=== PATIENT | female | born 1970 | race Caucasian/White ===

== ENCOUNTER 2019-05-11 06:59 | Day surgery (SDC) | payer BC, SELFPAY ==
[2019-05-11 07:17] VITALS: BP 109/68; PULSE 71; RESP 18; TEMP 36.1; O2SAT 100
[2019-05-11] MEDS: Lactated Ringers 1,000 ML 80 ML IV (07:33)
--- NOTE | 2019-05-11 08:08 | W.PM.DSUDISC ---
Discharge Plan Disposition Patient Disposition: HOME Condition: Good Discharge Details Reason For Visit: Colonoscopy Attending Provider: Nicolasa Banerjee Primary Care Provider: Nohelia Lee Home Meds and New Rx's Prescriptions: Continued levothyroxine 75 mcg capsule 75 mcg PO DAILY RF: 0 multivitamin 1 EACH tablet 1 ea PO DAILY RF: 0 Discontinued polyethylene glycol 3350 17 gram/dose powder 238 g PO ONCE Qty: 238 RF: 0 bisacodyl [Dulcolax (bisacodyl)] 5 mg tablet,delayed release (DR/EC) 5 mg PO ONCE Qty: 4 RF: 0 Discharge Instructions Additional Instructions: Findings: Your colonoscopy was normal. Follow up: Plan for screening colonoscopy in 10 years or sooner if symptoms arise. Please call if you develop: fevers >101.5 Nausea or Vomiting Abdominal pain that is not transient DAY SURGERY UNIT POST COLONOSCOPY INSTRUCTIONS 1. Because there will be medication in your system for the next 24 hours, you may feel a little sleepy. Your coordination will be affected. Therefore: a. Do not drive or operate dangerous equipment for 24 hours. b. Do not drink alcohol beverages for 24 hours (not even beer). c. Plan to go home and rest for the day. 2. Generally there are no restrictions on your activity after a day or so has gone by, but you may feel a bit fatigued for a few days. 3 After you arrive home you may have a light meal and return to a normal diet as you can tolerate it without feeling sick to your stomach. 4. After surgery, you may feel pain or discomfort. This should be only transient, but if it persists please contact your doctor. 5. If there are any questions regarding the findings of your procedure, please feel free to contact your doctor. 6. If you are unable to contact your doctor with a problem, contact the hospital at [phone]. 7. Continue all your regular medications unless directed otherwise. I understand the above instructions and have no questions. Signature of Patient or Responsible Adult Escort Date/Time Name of Responsible Adult Escort Signature of Nurse Date/Time Activity:: Activity as Tolerated Diet:: As Tolerated Discharge Orders Discharge Orders: Discharge Order (Routine); Ordered 05/11/19 Ordered By: Nicolasa Banerjee
[2019-05-11 09:15] VITALS: BP 96/62; PULSE 59; RESP 18; TEMP 36.3; O2SAT 100
--- NOTE | 2019-05-11 10:30 | COLE_ITS ---
REPORT OF OPERATIVE PROCEDURE DATE OF PROCEDURE May 11, 2019 PREOPERATIVE DIAGNOSIS Screening. POSTOPERATIVE DIAGNOSIS Normal colon. PROCEDURE Colonoscopy. SURGEON Nicolasa Banerjee M.D. ANESTHESIA General. INDICATIONS This is a 49-year-old woman who presents for her first screening colonoscopy. She is asymptomatic and has no family history of colon cancer. PROCEDURE DESCRIPTION She was placed in the left Jauregui position. Propofol was titrated to sedation. Digital rectal examinati on revealed no abnormities. The scope was advanced to the cecum without difficulty. The ileocecal tam ve and the appendiceal orifice were clearly identified. Her prep was excellent. The scope was slowly withdrawn with no abnormalities seen within the ascending, transverse, descending, sigmoid colon or r ectum with the exception of some prominent internal hemorrhoids seen on retroflexed view. She tolerat ed the procedure well and was stable to Recovery. She will need a followup screening again in 10 years. CC: HENRI Paredes
== END 2019-05-11 09:25 | disposition home or self-care (01) ==
PROVIDERS: PCP Nurse Practitioner; Visit Provider Surgery
PROC: 0DJD8ZZ Inspection of Lower Intestinal Tract, Via Natural or Artificial Opening Endoscopic (ICD-10-PCS; CPT 45378; principal; 2019-05-11 08:30)
DX: Z12.11 Encounter for screening for malignant neoplasm of colon (principal); K64.8 Other hemorrhoids
CPT/HCPCS: 45378

== ENCOUNTER 2020-03-15 00:34 | Outpatient (CLI) | payer BC, SELFPAY ==
--- NOTE | 2020-03-15 | DI.MAMMO_ITS ---
EXAM: MG MAMMO SCREENING CLINICAL HISTORY: SCREENING, Z12.31 TECHNIQUE: Bilateral full field digital CC and MLO mammographic images were obtained with 3D tomosyn thesis and utilizing computer aided detection (CAD). COMPARISON: Available for comparison. FINDINGS: Masses/Architectural Distortion: None seen. Microcalcifications: No suspicious pleomorphic-type are seen. Skin Thickening/Nipple Retraction: None. IMPRESSION: 1. No significant interval change with no specific features of malignancy noted. 2. Unless there is more urgent need, screening mammography is recommended, as per [employer] guidelines. BI-RADS Category 1 - Negative Breast Density - Category C - Heterogeneously dense The mammogram demonstrates the patient's breast tissue is dense. Dense breast tissue is very common a nd is not abnormal but dense breast tissue can make it harder to find cancer on a mammogram. Also, de nse breast tissue may increase their breast cancer risk. This information about the result of the [facility] mogram report was provided to the patient to raise their awareness. Use this report when you speak wi th the patient about their risks for breast cancer, which includes their family history. At that time , you may recommend for more screening tests (Ultrasound or MRI) as they might be useful based on the ir risk. A negative radiographic report should not delay biopsy if a dominant or clinically suspicious mass is present. Up to ten percent of cancers are not identified on mammography. A negative report may reinforce clinical impression. Adenosis and dense breasts may obscure an underlying neoplasm. False positive reports average 6 to 10%. Patient will receive a letter notifying them of these results.
== END 2020-03-15 00:54 ==
PROVIDERS: PCP Nurse Practitioner; Visit Provider Nurse Practitioner
DX: Z12.31 Encounter for screening mammogram for malignant neoplasm of breast (principal); R92.2 Inconclusive mammogram
CPT/HCPCS: 77063; 77067

== ENCOUNTER 2020-04-30 23:23 | Emergency (ER) | payer BC, SELFPAY ==
--- NOTE | 2020-04-30 23:25 | ED.GENADUL_ITS ---
Discharge Plan Disposition Patient Disposition: HOME Condition: Stable Discharge Details Chief Complaint: Headache Clinical Impression: Migraine Primary Care Provider: Nohelia Lee ED Provider: Paloma Bhatt Home Meds and New Rx's Prescriptions: Continued levothyroxine 75 mcg capsule 75 mcg PO DAILY RF: 0 multivitamin 1 EACH tablet 1 ea PO DAILY RF: 0 Discharge Instructions Instructions: Migraine Headache (ED) Additional Instructions: Drink plenty of fluids and get plenty of rest. Take 600 mg of ibuprofen every 6 hours and/or 500 mg of Tylenol every 4 hours as needed for pain. Take Zofran as needed and directed for nausea and vomiting. Follow-up with your primary care doctor in 1 week. Return to the emergency department with any worsening or new concerning symptoms. Discharge Data Discharge Physician: Paloma Bhatt Medical Decision Making 2340 -- 50-year-old female with a history of hypothyroidism and migraines presents with migraine headache for the past 2 hours. Vitals within normal limits. Patient appears uncomfortable covering her eyes due to photophobia. She appears nontoxic. No nuchal rigidity. No focal deficits. As this is consistent with her usual migraines, do not see an indication for any labs and imaging at this time. Will place an IV, bolus IV fluids, Compazine, Benadryl, Decadron and reassess. 0100 --patient reassessed and she feels much better and is requesting to go home. Patient was able to ambulate and denies any acute complaints at this time. Advised to follow up with the primary care doctor for re-evaluation. Usual and customary return precautions given prior to discharge. Medical Records Medical records reviewed: Yes I reviewed the patient's medical records. HPI General Mode of arrival: ambulatory . Date/Time Provider Initiated Documentation: 04/30/20 23:25 . Limitations to Documentation: no limitations . Information obtained by: patient . HPI Narrative: Patient is a 50-year-old female with a history of migraines and hypothyroidism who presents to the ED for complaint of headache for the past 2 hours. Patient states she was watching a movie on a laptop at home when she felt a sudden onset of diffuse throbbing headache. She states she attempted to lay down and the headache became worse and is now mainly on the left side of her head and behind her left eye. She t ook 6 tabs of 600 mg ibuprofen over this period of time with some relief stating that it improved her headache from 10/10 down to 4/10. She also took Tums due to nausea. She states she usually has migraines occurring only every few years and states her last migraine was 4 years ago and states this feels similar to that. She also admits to sensitivity to light and noise. She denies any fever, vomiting, acute neck pain, chest pain, abdominal pain, dizziness, blurry vision, speech changes or extremity weakness or numbness. She states she traveled to [facility] within the past 2 weeks which is in a green zone for coronavirus. She denies any other known sick contacts, new medications, new foods or other recent illness. Related Data Home Medications Medication Instructions Recorded Confirmed multivitamin 1 ea PO DAILY NS 01/14/13 04/30/20 levothyroxine 75 mcg capsule 75 mcg PO DAILY 03/22/19 04/30/20 Allergies Allergy/AdvReac Type Severity Reaction Status Date / Time Penicillins Allergy Intermediate hives Unverified 04/30/20 23:29 Sulfa (Sulfonamide Allergy Intermediate Hives Unverified 04/30/20 23:29 Antibiotics) Review of Systems All systems reviewed & are unremarkable except as noted in HPI and below Constitutional Constitutional: Reports as per HPI, Denies chills, Denies fever(s) and Reports headache(s) Eyes Eyes: Denies blurry vision and Reports photophobia ENT Ears, Nose, Mouth, and Throat: Denies dizziness, Reports headache(s), Denies sore throat and Denies throat swelling Cardiovascular Cardiovascular: Denies chest pain and Denies dyspnea Respiratory Respiratory: Denies cough and Denies dyspnea Gastrointestinal Gastrointestinal: Denies abdominal pain, Denies diarrhea, Reports nausea and Denies vomiting Genitourinary Genitourinary: Denies hematuria and Denies dysuria Musculoskeletal Musculoskeletal: Denies back pain and Denies numbness Integumentary/Breasts Skin/Breast: Denies lesions and Denies rash Neurologic Neurologic: Denies dizziness, Reports headache(s), Denies localized weakness and Denies numbness Allergic/Immunologic Allergic/Immunologic: Denies throat swelling [facility] Medical History (Updated 05/01/20 @ 00:54 by Paloma Bhatt DO) Hypothyroid (Chronic) Migraine (Chronic) Surgical History (Updated 05/25/19 @ 11:38 by Julieth Marquis RN) H/O hernia repair (Chronic ~12/2012) Hx of colonoscopy (Chronic) 05/11/19 Dr Nicolasa Banerjee, [facility], normal, repeat 10 years. Family History (Updated 03/22/19 @ 08:33 by Deepika Dunn RN) Mother Hypertension Rheumatoid arthritis Father Pancreatic cancer Maternal Grandmother Breast cancer Son Diabetes Social History (Updated 04/29/19 @ 10:54 by FRANK Jacobo) Smoking/Tobacco Use Status: Never Alcohol Intake: current Alcohol Intake frequency: 0-2 drinks per day Alcohol type: wine Drug use: Never Substance use type: does not use Do you feel safe at home: Yes Do you feel safe in your relationship?: Yes Exam Const General: cooperative, healthy appearing and uncomfortable Orientation: alert, awake and oriented x3 HENMT Head: normal to inspection Face and sinus: normal facial exam Eyes General: appearance normal, both eyes and all related structures Pupils: PERRL EOM: EOM intact bilaterally Direct ophthalmoscopy: photophobia Neck Neck: normal visual inspection and No submandibular swelling Lymphatic: no lymphadenopathy noted Chest Chest: normal inspection of the chest and no tenderness Resp Effort & Inspection: normal respiratory effort and able to speak in complete sentences Auscultation: clear to auscultation bilaterally Cardio Rate: regular rate Rhythm: regular rhythm GI Inspection: normal to inspection Palpation: soft, not firm, not rigid and nontender Auscultation: normal bowel sounds Back/Spine/Pelvis Thoracic/Lumbar Spine: thoracic and lumbar spine normal to inspection Pelvis: no pain with anterior-posterior compression Skin General skin exam: no rashes or lesions noted Neuro General: patient alert, patient awake, patient oriented x3, moves all extremities, no meningeal signs, no focal motor deficits and CN's II-XI intact bilaterally Cognition: normal cognition Speech: speech normal Motor: muscle tone normal throughout and strength 5/5 throughout Sensory Exam: no sensory deficits noted Extrem General: normal to inspection, full ROM, capillary refill normal, no calf tenderness bilaterally and no edema Psych Appearance: grossly normal Mental Status: mental status grossly normal Speech and Movement: speech and movement normal Affect: normal affect
[2020-04-30 23:29] VITALS: BP 124/85; PULSE 68; RESP 16; TEMP 36.8; O2SAT 100
[2020-04-30] MEDS: Normal Saline 1,000 ML 1000 ML IV (23:45)
[2020-05-01] MEDS: Dexamethasone 10 MG/ML VIAL IVP (00:08)
[2020-05-01] MEDS: diphenhydrAMINE 50 MG/ML VIAL 25 MG IVP (00:10)
[2020-05-01] MEDS: Prochlorperazine 10 MG/2 ML VIAL IVP (00:15)
[2020-05-01 00:34] VITALS: BP 99/70; PULSE 75; RESP 18; O2SAT 100
[2020-05-01] MEDS: Ondansetron O.D.T. 4 MG TABEF, 3 TABS/BTL PO (01:03)
== END 2020-05-01 01:05 | disposition home or self-care (01) ==
PROVIDERS: Emergency Provider Physician Assistant; PCP Nurse Practitioner
DX: G43.909 Migraine, unspecified, not intractable, without status migrainosus (principal)
CPT/HCPCS: 96361; 96374; 96375; 99284; J0780; J1100; J1200

== ENCOUNTER → 2022-01-07 01:27 | Outpatient (CLI) | payer BC, SELFPAY ==
--- NOTE | 2022-01-07 | DI.MAMMO_ITS ---
Exam(s) MAMMO SCREENING EXAM: MAMMO SCREENING CLINICAL HISTORY: SCREENING, Z12.31. TECHNIQUE: Bilateral full field digital CC and MLO mammographic images were obtained with 3D tomosyn thesis and utilizing computer aided detection (CAD). COMPARISON: Prior mammograms were reviewed, the most recent being February 2020. FINDINGS: Fibroglandular tissue is again noted be moderately dense, this somewhat decreasing the sensitivity of the mammogram for finding hidden underlying lesions. There are no new significant radiograph findings in the right breast. In the left breast there are 2 microcalcification groups, 1 of these located 2 cm medial to the nippl e and the other located 8 cm medial to the nipple, both on the CC view. The more central group appea rs unchanged. The more peripheral group appears slightly more prominent. There are no obvious spiculated masses. There is no significant architectural distortion nor skin thickening-retraction. IMPRESSION: Dense bilateral fibroglandular tissue. No radiographic evidence of malignancy in the right breast. Left breast microcalcification groups. Recommend spot Mag 2D views of both groups in CC plane plus s traight lateral view. BI-RADS Category 0 - Assessment Incomplete: Need additional imaging evaluation Breast Density - Category C - Heterogeneously dense Breast density Category C or D implies that the patient has dense breast tissue. Dense breast tissue can make it harder to find cancer on a mammogram. Dense breast tissue is also associated with an incr eased risk of breast cancer. This information about the result of the mammogram report was provided to the patient to raise their awareness. Use this report when you speak with the patient about their risks for breast cancer, which includes their family history. At that time, you may recommend additional screening tests (Ultrasoun d or MRI) as these tests may add significant information. A negative radiographic report should not delay biopsy if a dominant or clinically suspicious mass is present. Up to ten percent of cancers are not identified on mammography. A negative report may reinforce clinical impression. Adenosis and dense breasts may obscure an underlying neoplasm. False positive reports average 6 to 10%. Patient will receive a letter notifying them of these results.
== END ==
PROVIDERS: PCP Nurse Practitioner; Visit Provider Nurse Practitioner
DX: Z12.31 Encounter for screening mammogram for malignant neoplasm of breast (principal); R92.8 Other abnormal and inconclusive findings on diagnostic imaging of breast
CPT/HCPCS: 77063; 77067

== ENCOUNTER → 2022-01-15 03:59 | Outpatient (CLI) | payer BC, SELFPAY ==
--- NOTE | 2022-01-15 14:28 | DI.MAMMO_ITS ---
Exam(s) MG MAMMO SCREEN CALL BACK UNI US BREAST LT LIMITED EXAM: MG MAMMO SCREEN CALL BACK UNI and U/S breast LT limited CLINICAL HISTORY: F/U ABNL MAMMO, LT BREAST 2 MICROCALCIFICATION GROUPS MEDIAL TO NIPPLE. TECHNIQUE: Craniocaudal and mediolateral oblique Full Field Digital Mammography views of the left br east with Computer Aided Diagnosis followed by Tomosynthesis and left breast ultrasound. COMPARISON: Comparison is made with prior examinations. FINDINGS: Mammography/Tomosynthesis: Masses/Architectural Distortion: None seen. Microcalcifictions: No suspicious pleomorphic-type are seen. The 2 groupings of calcifications have b een present on prior examinations. The calcifications in the retroareolar region appear to be so sea ivan with the round partially obscured mass. Skin Thickening/Nipple Retraction: None. Limited left breast US: Echotexture: Normal appearance of the glandular tissue. Shadowing: No suspicious foci. Cyst: There is a 0.5 cm cyst at the 9 o'clock position of the left breast 4 cm from the nipple. Solid lesions: At the 7 o'clock position of the left breast 1 cm from the nipple, there is a 0.3 x 0. 5 cm nodule present. This may correspond to the mammographic abnormality. Ductal dilation: None. IMPRESSION: 1. No evidence for malignancy is identified at this time. 2. A six-month follow-up left mammogram and ultrasound are requested for re-evaluation. 3. The findings were discussed with the patient on the date of the examination. BI-RADS Category 3 - 6 month - Probably Benign Finding: Recommend follow-up imaging in 6 months Breast Density - Category C - Heterogeneously dense Breast density Category C or D implies that the patient has dense breast tissue. Dense breast tissue can make it harder to find cancer on a mammogram. Dense breast tissue is also associated with an incr eased risk of breast cancer. This information about the result of the mammogram report was provided to the patient to raise their awareness. Use this report when you speak with the patient about their risks for breast cancer, which includes their family history. At that time, you may recommend additional screening tests (Ultrasoun d or MRI) as these tests may add significant information. A negative radiographic report should not delay biopsy if a dominant or clinically suspicious mass is present. Up to ten percent of cancers are not identified on mammography. A negative report may reinforce clinical impression. Adenosis and dense breasts may obscure an underlying neoplasm. False positive reports average 6 to 10%. Patient will receive a letter notifying them of these results.
== END ==
PROVIDERS: PCP Nurse Practitioner; Visit Provider Nurse Practitioner
DX: Z12.31 Encounter for screening mammogram for malignant neoplasm of breast (principal); R92.8 Other abnormal and inconclusive findings on diagnostic imaging of breast; N60.02 Solitary cyst of left breast; N63.24 Unspecified lump in the left breast, lower inner quadrant
CPT/HCPCS: 76642; 77063; 77067

== ENCOUNTER → 2022-07-18 00:03 | Outpatient (CLI) | payer OTHER, SELFPAY ==
--- NOTE | 2022-07-18 | DI.US_ITS ---
Exam(s) MG MAMMO DIAGNOSTIC UNI US BREAST LT LIMITED EXAM: US BREAST LT LIMITED CLINICAL HISTORY: LT BREAST MASS, N63.20, MICROCALCIFICATION F/U, 6 MO F/U TECHNIQUE: Ultrasound performed using standard protocol. COMPARISON: No exams were available for comparison FINDINGS: Left breast mammogram with magnification views of the left breast and left breast ultrasound are inte rpreted in conjunction. Patient had a group of microcalcifications identified in the medial retroare olar portion of the left breast on prior examinations of December 2021, these are again seen on today's ex amination and appear to have increased somewhat in number since the prior examination, numbering in e xcess of 30 microcalcifications period many of these are punctate but there is some question of a few branching and curvilinear forms period no other suspicious findings in the left breast. Breast ultr asound shows no mass or cyst in the medial retroareolar portion of the breast. Because of the interval increase in number of microcalcifications and the possibility of pleomorphism , biopsy is recommended. I have discussed these findings with the patient. IMPRESSION: Biopsy recommended for group of microcalcifications of the left breast in medial retroareolar portion of the left breast about 3 cm from the nipple. BI-RADS Cat 4 - Suspicious Abnormality: Biopsy should be considered Breast Density - Category C - Heterogeneously dense DATA REPOSITORY:
== END ==
PROVIDERS: PCP Nurse Practitioner; Visit Provider Nurse Practitioner
DX: R92.8 Other abnormal and inconclusive findings on diagnostic imaging of breast (principal); R92.0 Mammographic microcalcification found on diagnostic imaging of breast
CPT/HCPCS: 76642; 77061; 77065; G0279

== ENCOUNTER 2023-03-06 00:58 | Outpatient (CLI) | payer OTHER, SELFPAY ==
--- NOTE | 2023-03-06 | DI.US_ITS ---
Exam(s) US BREAST LT COMPLETE MG MAMMO DIAGNOSTIC BI EXAM: MG MAMMO DIAGNOSTIC BI AND COMPLETE LEFT BREAST ULTRASOUND CLINICAL HISTORY: DIAGNOSTIC, 6 MO F/U, F/U LT BREAST LESION, R92.0. TECHNIQUE: BOTH CC AND MLO mammographic images BOTH BREASTS were obtained with 3D tomosynthesis tech que and utilizing computer aided detection (CAD). ALSO performed spot Mag 2D view of microcalcification group in the medial aspect of the left breast. COMPLETE LEFT BREAST ULTRASOUND was performed including all 4 quadrants, the retroareolar region, and the left axilla. COMPARISON: Prior mammograms were reviewed, the most recent being June 2022 and subsequent mammo grams July 2022. Ultrasound 07/18/2022 was reviewed.. This 52-year-old patient underwent stereotaxic biopsy of a group of microcalcifications located anter iorly in the left breast on August 05, 2022 performed at [facility] and [place] are[place] negative for malignancy. A 2nd more medially located group of microcalcifications with not b iopsied at that time. FINDINGS: DIAGNOSTIC BILATERAL MAMMOGRAM: There are no new microcalcifications in the region of the biopsy marker clip in the left breast. Prev iously present microcalcification group at this location is no longer seen. The 2nd more medially located microcalcification group in the left breast appears unchanged from the images of 08/05/2022. There are no new spiculated masses nor new additional malignant-appearing microcalcification groups i n either breast. There is no new architectural distortion or skin thickening-traction. COMPLETE LEFT BREAST ULTRASOUND: There is a solitary finding which is a small benign 5 mm microcyst at the 2 o'clock position. There are no solid lesions nor worrisome areas of decreased through transmission all 4 quadrants of t he left breast. Scanning of the left axilla is negative for significant adenopathy. IMPRESSION: 1. There are no microcalcifications in the region of the stereotactic marker clip (July 2022). 2. The 2nd group of more medially located microcalcifications is unchanged from images of August 12. Recommend repeat mammogram with spot Mag 2D view of this microcalcification group in 6 months. 3. Negative complete left breast ultrasound with the exception of a benign 5 mm microcyst at 2 o'cloc k position. The patient was informed of the findings and follow-up recommendations by myself prior to leaving the department today. BI-RADS Category 3 - 6 month - Probably Benign Finding: Recommend follow-up mammography in 6 months Breast Density - Category C - Heterogeneously dense Breast density Category C or D implies that the patient has dense breast tissue. Dense breast tissue can make it harder to find cancer on a mammogram. Dense breast tissue is also associated with an incr eased risk of breast cancer. This information about the result of the mammogram report was provided to the patient to raise their awareness. Use this report when you speak with the patient about their risks for breast cancer, which includes their family history. At that time, you may recommend additional screening tests (Ultrasoun d or MRI) as these tests may add significant information. A negative radiographic report should not delay biopsy if a dominant or clinically suspicious mass is present. Up to ten percent of cancers are not identified on mammography. A negative report may reinforce clinical impression. Adenosis and dense breasts may obscure an underlying neoplasm. False positive reports average 6 to 10%. Patient will receive a letter notifying them of these results.
--- OUTSIDE RECORDS SUMMARY | 2023-03-06 01:01 | XMS_ITS | Patient Health Record ---
Author Name Unknown Organization [facility] Address [address], [place] [id number] Care Team Providers Care Cleaner Greaser Name Role Phone Nohelia Lee Primary Care Provider [phone] ALLERGIES Allergen (clinical drug ingredient) Drug/Non Drug Allergy documented on EMR Reaction Allergy Type Onset Date Status Keflex rash Drug Allergy Active penicillin V Penicillin V Potassium Unknown Drug Allergy Active Substance with sulfonamide structure and antibacterial mechanism of action (substance) Sulfa (uncoded) Unknown Allergy Active RESULTS Component Value Reference Range Notes LIPID PANEL Reviewed date:02/18/2023 04:35:46 PM Interpretation: Performing Lab:[facility], [facility], [address] [place] [address], [phone] Robel Humphries M.D. Notes/Report: Received Date: CHOLESTEROL, TOTAL 216 <200 mg/dL HDL CHOLESTEROL 82 > OR = 50 mg/dL TRIGLYCERIDES 99 <150 mg/dL LDL-CHOLESTEROL 113 Reference range: <100 Desirable range <100 mg/dL for primary prevention; <70 mg/dL for patients with CHD or diabetic patients with > or = 2 CHD risk factors. LDL-C is now calculated using the Cayden-Nishi calculation, which is a validated novel method providing better accuracy than the Friedewald equation in the estimation of LDL-C. Cayden SANTIAGO et al. APRIL. 2013;310(19): 8334-3082 (http://education.OVGuide.com/f aq/PET433) CHOL/HDLC RATIO 2.6 <5.0 (calc) NON HDL CHOLESTEROL 134 <130 mg/dL (calc) For patients with diabetes plus 1 major ASCVD risk factor, treating to a non-HDL-C goal of <100 mg/dL (LDL-C of <70 mg/dL) is considered a therapeutic option. CBC WITH DIFF Reviewed date:02/18/2023 04:35:46 PM Interpretation: Performing Lab:[facility], [facility], [address] [place] [address], [phone] Robel Humphries M.D. Notes/Report: Received Date: WHITE BLOOD CELL COUNT 9.7 3.8-10.8 Thousand/ uL RED BLOOD CELL COUNT 3.78 3.80-5.10 Million/uL HEMOGLOBIN 11.9 11.7-15.5 g/dL HEMATOCRIT 36.2 35.0-45.0 % MCV 95.8 80.0-100.0 fL MCH 31.5 27.0-33.0 pg MCHC 32.9 32.0-36.0 g/dL RDW 12.8 11.0-15.0 % PLATELET COUNT 391 140-400 Thousand/uL MPV 10.3 7.5-12.5 fL ABSOLUTE NEUTROPHILS 5888 0331-0952 cells/uL ABSOLUTE LYMPHOCYTES 2823 850-3900 cells/uL ABSOLUTE MONOCYTES 669 200-950 cells/uL ABSOLUTE EOSINOPHILS 175 15-500 cells/uL ABSOLUTE BASOPHILS 146 0-200 cells/uL NEUTROPHILS 60.7 LYMPHOCYTES 29.1 MONOCYTES 6.9 EOSINOPHILS 1.8 BASOPHILS 1.5 TSH WITH REFLEX Reviewed date:02/18/2023 04:35:46 PM Interpretation: Performing Lab:[facility], [facility], [address] [place] [address], [phone] Robel Humphries M.D. Notes/Report: Received Date: TSH W/REFLEX TO FT4 4.57 Reference Range > or = 20 Years 0.40-4.50 Ranges First trimester 0.26-2.66 Second trimester 0.55-2.73 Third trimester 0.43-2.91 CMP Reviewed date:02/18/2023 04:35:46 PM Interpretation: Performing Lab:[facility], [facility], [address] [place] [address], [phone] Robel Humphries M.D. Notes/Report: Received Date: GLUCOSE 74 65-99 mg/dL Fasting reference interval UREA NITROGEN (BUN) 19 7-25 mg/dL CREATININE 0.90 0.50-1.03 mg/dL EGFR 76 > OR = 60 mL/min/1.73m2 The eGFR is based on the CKD-EPI 2020 equation. To calculate the new eGFR from a previous Creatinine or Cystatin C result, go to https://www.kidney.o rg/professionals/ kdoqi/gfr%5Fcalculat or BUN/CREATININE RATIO NOT APPLICABLE 6- (calc) SODIUM 135 135-146 mmol/L POTASSIUM 4.3 3.5-5.3 mmol/L CHLORIDE 102 98-110 mmol/L CARBON DIOXIDE 25 20-32 mmol/L CALCIUM 9.9 8.6-10.4 mg/dL PROTEIN, TOTAL 7.0 6.1-8.1 g/dL ALBUMIN 4.2 3.6-5.1 g/dL GLOBULIN 2.8 1.9-3.7 g/dL (calc) ALBUMIN/GLOBULIN RATIO 1.5 1.0-2.5 (calc) BILIRUBIN, TOTAL 0.4 0.2-1.2 mg/dL ALKALINE PHOSPHATASE 41 37-153 U/L AST 18 10-35 U/L ALT 17 6-29 U/L Mammogram Left Breast Reviewed date:07/23/2022 11:17:02 AM Interpretation:BIRADS Category 4 Performing Lab: Notes/Report: BIRADS Category 4 Results: BIRADS 4 Breast Biopsy Stereo Reviewed date:08/08/2022 12:27:20 PM Interpretation:see pathology report Performing Lab: Notes/Report: see pathology report RESULTS: benign breast tissue see path report NOTES: T4 FREE ORDER WITH TOTAL Reviewed date:02/18/2023 04:35:46 PM Interpretation: Performing Lab:[facility], [facility], [address] [place] [address], [phone] Robel Humphries M.D. Notes/Report: Received Date: T4, FREE 1.1 0.8-1.8 ng/dL REASON FOR REFERRAL Reason pt seen PD; FAXED TO [facility] 07.21.2022 [place] [facility] Per Radiologist [facility], pt needs Stereotactic Biopsy L breast d/t increased micro-calcifications Please contact our office within 7 days to notify [facility] of scheduled appointment Diagnosis 1 Breast cancer screen ing by mammogram (Z12.31) Referral Organization [facility] Roddy Juarez Referring Provider First Name Nohelia Referring Provider Last Name Jesus Referring Provider Speciality Nurse Prac jacinto Referred Provider [facility], Radiology Referred Provider Specialty Radiology General Notes Nirmala Naranjo 07/21 10:12:23 AM >[facility] REGARDING FACILITY LOCATION., Lynn PERALTA, [place] 07/21/2022 11:33:04 AM >[facility], Nirmala Naranjo 07/21/2022 12:33:08 PM >FAXED TO [facility]., Hetal Fernandez 07/30/2022 12:46:18 PM >Per [facility] pt seen on 07.22.22 Referral Priority Urgent Referral Appointment Date 07/22/2022 MEDICATIONS Medication SIG (Take, Route, Frequency, Duration) Notes Start Date End Date Status Tessalon Perles 100 MG 1 capsule as need ed Orally Three times a day for 7 days 01/30/2021 Not-Taking levoFLOXacin 500 MG 1 tablet Orally Once a day for 7 day(s) 11/04/2021 Not-Taking Multivitamins as directed Orally Active Levothyroxine Sodium 100 MCG 1 tablet in the morning on an empty stomach Orally Once a day for 90 days 02/17/2023 Active SOCIAL HISTORY Tobacco Use: Social History Observation Description Date Details (start date - stop date) Never Smoker NA - NA Sex Assigned At : Social History Observation Description Sex Assigned At Unknown OTHER TOBACCO USE: Question Answer Notes Are you an other tobacco user? No SMOKING STATUS: Question Answer Notes Are you a: Nonsmoker PRAPARE Question Answer Notes Date Completed/Updated: 12/06/2021 What is your current housing situation? I have h ousing Are you worried about losing your housing? No What is the highest level of school that you have finished? 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 Check all that apply I do not have problems meeting my needs Has lack of transportation k ept you from medical appointments, meetings, work or from getting things needed for daily living? No How often do you see or talk to people that you care about and feel close to? (For example: talking to friends on the phone, visiting friends or family, going to cheondoism or club meetings) More than 5 times a week How stressed are you? Stress is when someone feels tense, nervous, anxious, or can't sleep at night because their mind is troubled Quite a bit In the past year have you sp ent more than 2 nights in a row in a fci, senior care, skilled nursing center, or juvenile correctional facility? No Are you a refugee? No What country are you from? [place] Do you feel physically and e motionally safe where you currently live? Yes In the past year, have you b een afraid of your partner or ex-partner? No PRAPARE Score: 3 PROBLEMS Problem Type ICD Code Onset Dates Problem Status W/U Status Risk SNOMED Code Notes Problem Fibromyalgia (M79.7) Active confirmed 2 [id number] Problem Mammographic microcalcification found on diagnostic imaging of breast (R92.0) Active confirmed Mammographic microcalcification of breast (32567118299116) Problem Acquired hypothyroidism (E03.9) Active confirmed 310119556 Problem Sinusitis (J32.9) Active confirmed Sinu sitis (20715458) Problem Perimenopause (N95.1) Active confirmed [id number] Problem Depression, unspecified depression type (F32.9) Active confirmed 17098666 Problem Abnormal perimenopausal bleeding (N92.4) Active confirmed 078093813 Problem Breast cancer screening by mammogram (Z12.31) Active confirmed [id number] VITAL SIGNS Heart Rate 78 BPM 02/10/2023 Temperature 98.0 degrees Fahrenheit 02/10/2023 Blood pressure diastolic 78 mmHg 02/10/2023 Oximetry 98 % 02/10/2023 Height 65 in 02/10/2023 Blood pressure systolic 126 mmHg 02/10/2023 Weight 168.0 lbs 02/10/2023 BMI 27.95 kg/m2 02/10/2023 Encounters Encounter Location Date Provider Diagnosis [address] [id number] 01/16/2023 Nohelia Lee [address] [id number] 02/10/2023 [facility] Annual physical exam Z00.00 ; Dietary counseling Z71.3 ; Perimenopause N95.1 ; Mammographic microcalcification found on diagnostic imaging of breast R92.0 and Acquired hypothyroidism E03.[address], [place] [id number] 07/16/2022 [facility] Mass of left breast, unspecified quadrant N63.[address], [place] [id number] 07/18/[address], [place] [id number] 01/12/2023 [facility] Mass of left breast, unspecified quadrant N63.20 and Screening for breast cancer Z12.[address], [place] [id number] 01/14/[address] [place] [address] 01/27/2023 [facility] Mammographic microcalcification found on diagnostic imaging of breast R92.[address], [place] [id number] 02/17/2023 [facility] Acquired hypothyroid ism E03.9 ASSESSMENTS Encounter Date Diagnosis Assessment Notes Treatment Notes Treatment Clinical Notes 02/17/2023 Acquired hypothyroid ism (ICD-10 - E03.9) 02/10/2023 Dietary counseling (ICD-10 - Z71.3) 01/27/2023 Mammographic microcalcification found on diagnostic imaging of breast (ICD-10 - R92.0) 01/12/2023 Screening for breast cancer (ICD-10 - Z12.31) 01/12/2023 Mass of left breast, unspecified quadrant (ICD-10 - N63.20) 07/16/2022 Mass of left breast, unspecified quadrant (ICD-10 - N63.20) 02/10/2023 Annual physical exam (ICD-10 - Z00.00) 02/10/2023 Perimenopause (ICD-1 0 - N95.1) 02/10/2023 Mammographic microcalcification found on diagnostic imaging of breast (ICD-10 - R92.0) 02/10/2023 Acquired hypothyroid ism (ICD-10 - E03.9) 02/10/2023 Other Scribed for SHILPA Reno, by Payal Zafar scribe. I, SHILPA Reno, have personally reviewed and agreed with the information entered by the Payal scribalexandra. PLAN OF TREATMENT Pending Test Test Name Order Date Ultrasound Breast Left 01/12/2023 Future Test Test Name Order Date MAMMOGRAM 01/28/2023 TSH WITH REFLEX 02/17/2023 Next Appt Details Provider Name:Nohelia spear, 04/17/2023 07:40:00 AM, [address] [place] [address], [phone], Insurance Providers Payer Name Payer Address Payer Phone Subscriber Number Group Number Insured Name Patient Relationship to Insured Coverage Start Date Coverage End Date [employer] ([place] [employer] ) [address] [place], [place] [id number] Ya Kramer Self - patient is the insured MEDICAL (GENERAL) HISTORY Medical History History ICD Code Sinusitis Large plantar wart left great toe Surgical History Surgery Date(Month/Year) hernia surgery 12/2012
== END 2023-03-06 01:18 ==
LOC: DI 00:58
PROVIDERS: PCP Nurse Practitioner; Visit Provider Nurse Practitioner
DX: Z12.31 Encounter for screening mammogram for malignant neoplasm of breast (principal); N63.21 Unspecified lump in the left breast, upper outer quadrant
CPT/HCPCS: 76642; 77062; 77066; G0279

== ENCOUNTER 2023-04-23 02:19 | Outpatient (CLI) | payer OTHER, SELFPAY ==
--- OUTSIDE RECORDS SUMMARY | 2023-04-23 02:21 | XMS_ITS | Patient Health Record ---
Author Name Unknown Organization [facility] Address [address], [place] [id number] Care Team Providers Care Senior Courtroom Clerk Name Role Phone Nohelia Lee Primary Care Provider ALLERGIES Allergen (clinical drug ingredient) Drug/Non Drug Allergy documented on EMR Reaction Allergy Type Onset Date Status Keflex rash Drug Allergy Active penicillin V Penicillin V Potassium Unknown Drug Allergy Active Substance with sulfonamide structure and antibacterial mechanism of action (substance) Sulfa (uncoded) Unknown Allergy Active RESULTS Component Value Reference Range Notes LIPID PANEL Reviewed date:02/18/2023 04:35:46 PM Interpretation: Performing Lab:NL1, [facility], [address] [place] [address], [phone] Robel Humphries M.D. Notes/Report: Received Date: CHOLESTEROL, [...] LDL-C. Cayden SANTIAGO et al. APRIL. 2013;310(19): 5690-5421 (http://education.Slipstream.com/f aq/CCV076) CHOL/HDLC RATIO 2.6 <5.0 (calc) NON HDL CHOLESTEROL 134 <130 mg/dL (calc) For patients with diabetes plus 1 major ASCVD risk factor, treating to a non-HDL-C goal of <100 mg/dL (LDL-C of <70 mg/dL) is considered a therapeutic option. CBC WITH DIFF Reviewed date:02/18/2023 04:35:46 PM Interpretation: Performing Lab:[facility], [facility], [address] [place] [address], [phone] Robel Humphries M.D. Notes/Report: Received Date: WHITE BLOOD CELL COUNT 9.7 3.8-10.8 Thousand/ uL RED BLOOD CELL COUNT 3.78 3.80-5.10 Million/uL HEMOGLOBIN 11.9 11.7-15.5 g/dL HEMATOCRIT 36.2 35.0-45.0 % MCV 95.8 80.0-100.0 fL MCH 31.5 27.0-33.0 pg MCHC 32.9 32.0-36.0 g/dL RDW 12.8 11.0-15.0 % PLATELET COUNT 391 140-400 Thousand/uL MPV 10.3 7.5-12.5 fL ABSOLUTE NEUTROPHILS 5888 0088-5447 cells/uL ABSOLUTE LYMPHOCYTES 2823 850-3900 cells/uL ABSOLUTE MONOCYTES 669 200-950 cells/uL ABSOLUTE EOSINOPHILS 175 15-500 cells/uL ABSOLUTE BASOPHILS 146 0-200 cells/uL NEUTROPHILS 60.7 LYMPHOCYTES 29.1 MONOCYTES 6.9 EOSINOPHILS 1.8 BASOPHILS 1.5 TSH WITH REFLEX Reviewed date:02/18/2023 04:35:46 PM Interpretation: Performing Lab:[facility], [facility], [address] [place] [address], [phone] Robel Humphries M.D. Notes/Report: Received Date: TSH W/REFLEX TO FT4 4.57 Reference Range > or = 20 Years 0.40-4.50 Ranges First trimester 0.26-2.66 Second trimester 0.55-2.73 Third trimester 0.43-2.91 CMP Reviewed date:02/18/2023 04:35:46 PM Interpretation: Performing Lab:[facility], [facility], [address] [place] [address], [phone] Robel Humphries M.D. Notes/Report: Received Date: GLUCOSE 74 65-99 mg/dL Fasting reference interval UREA NITROGEN (BUN) 19 7-25 mg/dL CREATININE 0.90 0.50-1.03 mg/dL EGFR 76 > OR = 60 mL/min/1.73m2 The eGFR is based on the CKD-EPI 2020 equation. To calculate the new eGFR from a previous Creatinine or Cystatin C result, go to https://www.kidney.o rg/professionals/ kdoqi/gfr%5Fcalculat or BUN/CREATININE RATIO NOT APPLICABLE 6-22 (calc) SODIUM 135 135-146 mmol/L POTASSIUM 4.3 3.5-5.3 mmol/L CHLORIDE 102 98-110 mmol/L CARBON DIOXIDE 25 20-32 mmol/L CALCIUM 9.9 8.6-10.4 mg/dL PROTEIN, TOTAL 7.0 6.1-8.1 g/dL ALBUMIN 4.2 3.6-5.1 g/dL GLOBULIN 2.8 1.9-3.7 g/dL (calc) ALBUMIN/GLOBULIN RATIO 1.5 1.0-2.5 (calc) BILIRUBIN, TOTAL 0.4 0.2-1.2 mg/dL ALKALINE PHOSPHATASE 41 37-153 U/L AST 18 10-35 U/L ALT 17 6-29 U/L MAMMOGRAM Reviewed date:03/10/2023 08:54:38 AM Interpretation:BIRADS 3 Performing Lab: Notes/Report: BIRADS 3 Results: BIRADS 3 Breast Biopsy Stereo Reviewed date:08/08/2022 12:27:20 PM Interpretation:see pathology report Performing Lab: Notes/Report: see pathology report RESULTS: benign breast tissue see path report NOTES: Ultrasound Breast Left Reviewed date:03/10/2023 09:18:57 AM Interpretation: Performing Lab: Notes/Report: Results: Mammogram Left Breast Reviewed date:07/23/2022 11:17:02 AM Interpretation:BIRADS Category 4 Performing Lab: Notes/Report: BIRADS Category 4 Results: BIRADS 4 T4 FREE ORDER WITH TOTAL Reviewed date:02/18/2023 04:35:46 PM Interpretation: Performing Lab:NL1, [facility], [address] [place] [address], [phone] Robel Humphries M.D. Notes/Report: Received Date: T4, FREE 1.1 0.8-1.8 ng/dL REASON FOR REFERRAL Reason pt seen PD; FAXED TO [facility] 07.21.2022 [place] [facility]RGENT Per Radiologist [place], pt needs Stereotactic Biopsy L breast d/t increased micro-calcifications Please contact our office within 7 days to notify LR of scheduled appointment Diagnosis 1 Breast cancer screen ing by mammogram (Z12.31) Referral Organization [facility] Referring Provider First Name [facility] Referring Provider Last Name Jesus Referring Provider Speciality Nurse Bridger casey Referred Provider [facility], Radiology Referred Provider Specialty Radiology General Notes Nirmala Naranjo 07/21 10:12:23 AM >LMTCB REGARDING FACILITY LOCATION., Irwin Bailey RN 07/21/2022 11:33:04 AM >[facility], Nirmala Naranjo 07/21/2022 12:33:08 PM >FAXED TO [facility]., Hetal Fernandez 07/30/2022 12:46:18 PM >Per [facility] pt seen on 07.22.22 Referral Priority Urgent Referral Appointment Date 07/22/2022 Reason APPT 04/24/23 LP. FA XED TO [facility] 8.7 [place] Please eval and treat. MRI ordered. Please contact our office within 7 days to notify LR of scheduled appointment Diagnosis 1 Abnormal x-ray of ne ck (R93.89) Referral Organization [facility] Referring Provider First Name Nohelia Referring Provider Last Name Jesus Referring Provider Speciality Nurse Bridger casey Referred Provider [facility], , Referred Provider Specialty Neurology General Notes Nirmala Naranjo 03/30 03:40:05 PM >FAXED TO [facility]., Supriya Garay 04/20/2023 08:58:15 AM >PER FAX FROM [facility] APPT 04/24/23. Referral Priority Routine Referral Appointment Date 04/24/2023 Reason FAXED TO [facility] 8.9.2022 [place] Please evaluate and treat Please contact our office within 7 days to notify [facility] of scheduled appointment Diagnosis 1 Abnormal x-ray of ne ck (R93.89) Diagnosis 2 Neck pain (M54.2) Referral Organization [facility] [place] Referring Provider First Name Nohelia Referring Provider Last Name Jesus Referring Provider Speciality Nurse Bridger casey Referred Provider Bety Stubbs Referred Provider Specialty Physical The rapist General Notes Jose A Nirmala 04/01 05:04:29 PM >FAXED TO [facility]. Referral Priority Routine MEDICATIONS Medication SIG (Take, Route, Frequency, Duration) Notes Start Date End Date Status Multivitamins as directed Orally Active levoFLOXacin 500 MG 1 tablet Orally Once a day for 7 day(s) 11/04/2021 Not-Taking Levothyroxine Sodium 100 MCG 1 tablet in the morning on an empty stomach Orally Once a day for 90 days 02/17/2023 Active Tessalon Perles 100 MG 1 capsule as need ed Orally Three times a day for 7 days 01/30/2021 Not-Taking IMMUNIZATIONS Vaccine Route Administration Date Status Comme nts TDaP Adult [facility] 40332 Unknown 01/26/2008 Administered TD 7 and Up [facility] 55554 IM Intramuscular 01/27/2018 Adminis tered SHINGRIX [facility] 46555 Unknown 05/10/2019 Administered SHINGRIX [facility] 32940 IM Intramuscular 02/14/2020 Administer ed INFLUENZA 6 MONTHS UP TO 18 YRS [employer] 82445 Unknown 05/10/2019 Administered INFLUENZA 18 YRS TO 64 YRS [employer] Unknown 06/18/2020 Administered COVID-19 Pfizer IM Intramuscular 12/31/2021 Administered COVID-19 Moderna 81519 Unknown 11/28/2020 Administered COVID-19 Moderna 48480 Unknown 12/26/2020 Administered COVID-19 Moderna 90978 Unknown 07/02/2021 Administered SOCIAL HISTORY Tobacco Use: Social History Observation [...] school 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 Stress is when someone feels tense, nervous, anxious, or can't sleep at night because their mind is troubled Quite a bit In the past year have you sp ent more than 2 nights in a row in a assisted, half-way, custodial center, or juvenile correctional facility? No Are [...] Notes Problem Fibromyalgia (M79.7) Active confirmed 2 [id number] Problem Mammographic microcalcification found on diagnostic imaging of breast (R92.0) Active confirmed Mammographic microcalcification of breast (12243968028981) Problem Acquired hypothyroidism (E03.9) Active confirmed 526670773 Problem Sinusitis (J32.9) Active confirmed Sinu sitis (11198755) Problem Perimenopause (N95.1) Active confirmed [id number] Problem Depression, unspecified depression type (F32.9) Active confirmed 55165343 Problem Abnormal perimenopausal bleeding (N92.4) Active confirmed 147157224 Problem Breast cancer screening by mammogram (Z12.31) Active confirmed 917038622 Problem Abnormal x-ray of neck (R93.89) Active confirmed 106380477 VITAL SIGNS Heart Rate 54 BPM 03/27/2023 Temperature 97.5 degrees Fahrenheit 03/27/2023 Oximetry 99 % 03/27/2023 Blood pressure diastolic 74 mmHg 03/27/2023 Height 65 in 03/27/2023 Blood pressure systolic 118 mmHg 03/27/2023 Weight 162.2 lbs 03/27/2023 BMI 26.99 kg/m2 03/27/2023 Encounters Encounter Location Date Provider Diagnosis [address], [place] [id number] 01/16/[address], [place] [id number] 03/27/2023 [facility] Acquired hypothyroid ism E03.[address], [place] [id number] 04/10/2023 Nohelia Bond [address], [place] [id number] 04/17/2023 [facility] Acquired hypothyroid ism E03.[address], [place] [id number] 02/10/2023 [facility] Annual physical exam Z00.00 ; Dietary counseling Z71.3 ; Perimenopause N95.1 ; Mammographic microcalcification found on diagnostic imaging of breast R92.0 and Acquired hypothyroidism E03.[address], [place] [id number] 03/27/2023 Nohelia Bond Abnormal x-ray of ne ck R93.[address], [place] [id number] 07/16/2022 Nohelia Bond Mass of left breast, unspecified quadrant N63.[address], [place] [id number] 07/18/2022 Nohelia Bond [address], [place] [id number] 01/12/2023 Nohelia Bond Mass of left breast, unspecified quadrant N63.20 and Screening for breast cancer Z12.[address], [place] [id number] 01/14/2023 [facility] [address] [place] [address] 01/27/2023 [facility] Mammographic microcalcification found on diagnostic imaging of breast R92.[address], [place] [id number] 02/[facility] hypothyroid ism E03.[address], [place] [id number] 03/06/2023 Nohelia Bond [facility] [phone] 04/03/2023 Nohelia Lee [facility] [address] [place], [place] [id number] 04/08/2023 Nohelia Lee ASSESSMENTS Encounter Date Diagnosis Assessment Notes Treatment Notes Treatment Clinical Notes 03/27/2023 Acquired hypothyroid ism (ICD-10 - E03.9) 03/27/2023 Abnormal x-ray of ne ck (ICD-10 - R93.89) 04/17/2023 Acquired hypothyroid ism (ICD-10 - E03.9) 02/17/2023 Acquired hypothyroid ism (ICD-10 - E03.9) 02/10/2023 Dietary counseling (ICD-10 - Z71.3) 01/12/2023 Screening for breast cancer (ICD-10 - Z12.31) 01/12/2023 Mass of left breast, unspecified quadrant (ICD-10 - N63.20) 07/16/2022 Mass of left breast, unspecified quadrant (ICD-10 - N63.20) 02/10/2023 Annual physical exam (ICD-10 - Z00.00) 01/27/2023 Mammographic microcalcification found on diagnostic imaging of breast (ICD-10 - R92.0) 02/10/2023 Perimenopause (ICD-1 0 - N95.1) 02/10/2023 Mammographic microcalcification found on diagnostic imaging of breast (ICD-10 - R92.0) 02/10/2023 Acquired hypothyroid ism (ICD-10 - E03.9) 02/10/2023 Other Scribed for [facility] [place], by Payal Zafar scribe. Nohelia Deal FNP, have personally reviewed and agreed with the information entered by the Virtual scribe. 03/27/2023 Other Scribed for [facility] [place], by Payal Zafaribe. Nohelia Deal FNP, have personally reviewed and agreed with the information entered by the Virtual scribe. PLAN OF TREATMENT Future Test Test Name Order Date TSH WITH REFLEX 03/27/2023 Insurance Providers Payer Name Payer Address Payer Phone Subscriber Number Group Number Insured Name Patient Relationship to Insured Coverage Start Date Coverage End Date [employer] ([employer] ) [address] [place], [place] [phone] [id number] Ya Kramer Self - patient is the insured MEDICAL (GENERAL) HISTORY Medical History History ICD Code Sinusitis Large plantar wart left great toe Surgical History Surgery Date(Month/Year) hernia surgery 12/2012 Left breast stereotactic biopsy with Sma rk Eviva marker placed 07/2022
[2023-04-23 14:14] LABS: TSH (W/Ref FT4) 2.29 uIU/mL (0.36-3.74)
== END 2023-04-23 02:20 | disposition home or self-care (01) ==
LOC: LBO 02:19
PROVIDERS: PCP Nurse Practitioner; Visit Provider Nurse Practitioner
DX: E03.9 Hypothyroidism, unspecified (principal)
CPT/HCPCS: 36415; 84443

== ENCOUNTER 2023-04-27 12:40 | Emergency (ER) | payer OTHER, SELFPAY ==
[2023-04-27] VITALS (13 sets, daily range): BP systolic 117–132; BP diastolic 65–80; PULSE 54–78; RESP 15–16; TEMP 36.7; O2SAT 96–99
--- NOTE | 2023-04-27 12:30 | RT.EKG_ITS ---
APPROVED REPORT Exam: Resting ECG Reason for Exam: dizzy Patient Location: E HR:67 bpm ECG Measurements Heart Rate 67 AXIS ME 136 P 51 QRSd 99 QRS 31 QT 440 T 34 QTc 465 Conclusion Sinus rhythm...normal P axis, V-rate 60- 99
--- NOTE | 2023-04-27 13:08 | W.ED.GENAD ---
Discharge Plan Disposition Patient Disposition: Home Condition: Improving Discharge Details Clinical Impression: Atypical migraine, Visual disturbance Primary Care Provider: Nohelia Lee ED Provider: Tabatha Covington Home Meds and New Rx's Prescriptions: Continued levothyroxine 75 mcg capsule 75 mcg PO DAILY multivitamin 1 EACH tablet 1 ea PO DAILY Discharge Instructions Instructions: General Headache (ED) Additional Instructions: States he shows no evidence for cerebral vascular attack, aneurysm or stroke. No evidence of urinary tract infection. Your white blood cell count was elevated this could be from the prednisone you are taking. Follow up with primary care provider in 3-5 days. Return to ED sooner if any worsening or concerns. Increase oral fluids. Please take Tylenol or Ibuprofen with food every 4-6 hours as needed for pain and swelling. Please keep your MRI as previously scheduled. Referrals: Nohelia Lee [Primary Care Provider] - 1 week Medical Decision Making 52-year-old female presents to the ER with chief complaint of visual disturbances, she describes it as a kaleidoscope to her right eye, headache which began around 1030 while [address]. She reports that she was able to drive home and attempted to look at her cell phone which she was unable to do. She reports increased fatigue. She has been being seen per her PCP and had a recent neurology appointment on Thursday in [place] for some what sounds like cervical radiculopathy and some right upper extremity weakness. She is taking prednisone for osteoarthritis in her cervical spine. She reports that she has been diagnosed with some osteoarthritis in her neck. She denies any recent head injuries. She is scheduled for an upcoming MRI of her neck. Upon initial presentation she is alert and oriented x4, no facial droop, slight drift to her right upper extremity, no leg drop, no nystagmus. She does have some pain with upward lateral gaze on the right side. She also describes pain to her head and the base of her skull. Differential diagnosis includes but not limited to CVA, migraine with aura, MS, ALS, dehydration, infectious process, UTI. EKG was reviewed by Dr. Deras ER attending, please see official report, no old EKG available for review. Normal sinus rhythm, no ST elevation noted. There is artifact abnormality noted. Work-up ordered including CBC CMP, troponin, urinalysis, TSH with refractory T4, CTA brain and neck due to visual disturbances and headache. Normal saline 1 L at 300 an hour ordered. CBC shows leukocytosis with a white blood cell count of 14.40, platelets 414, left shift absolute neutrophils 9.92, lymphocytes 3.46 monocytes 0.82 this can be related to the methylprednisolone that the patient is taking. CMP is within normal limits, initial troponin less than 50 TSH is within normal limits at 1.57 urinalysis shows trace intact blood, negative for nitrites or leukocytes. Discussed CT results with patient and family who verbalized understanding. Patient to be discharged home with PCP follow-up. Patient did not get her labs that she will hydrate with oral fluids. Medical Records Medical records reviewed: Yes I reviewed the patient's medical records. Lab Data Lab results reviewed: Yes I reviewed the patient's lab results. Labs: Laboratory Tests Range/Units 04/27/23 04/27/23 04/27/23 12:50 12:50 12:50 WBC (4.4-10.8) 10^3/uL 14.40 H RBC (3.93-5.22) 10^6/uL 3.86 L Hgb (11.2-15.7) g/dL 12.3 Hct (36.0-46.0) % 35.1 L MCV (80-95) fL 91 MCH (27.0-33.0) pg 31.9 MCHC (32.0-36.0) % 35.0 RDW (11.7-14.6) % 12.8 Plt Count (130-400) 10^3/uL 414 H MPV (8.0-11.0) fL 9.2 Immature Gran % 0.4 Neutrophils % 68.9 Lymphocytes % 24.0 Monocytes % 5.7 Eosinophils % 0.3 Basophils % 0.7 Nucleated RBC % (0.0-0.3) % 0.0 Absolute Neutrophils (1.2-6.7) 10^3/uL 9.92 H Absolute Lymphocytes (1.2-3.4) 10^3/uL 3.46 H Absolute Monocytes (0.1-0.8) 10^3/uL 0.82 H Absolute Eosinophils (0.0-0.7) 10^3/uL 0.04 Absolute Basophils (0.0-0.2) 10^3/uL 0.10 Sodium (136-145) mmol/L 139 Potassium (3.5-5.1) mmol/L 3.8 Chloride (98-107) mmol/L 103 Carbon Dioxide (21.0-32.0) mmol/L 25.7 Anion Gap (3-11) mmol/L 10.3 BUN (7-18) mg/dL 17 Creatinine (0.55-1.02) mg/dL 0.7 Est GFR (CKD-EPI 2020) (mL/min/1.73m2) 102.71 Glucose (74-106) mg/dL 91 Calcium (8.5-10.1) mg/dL 9.4 Magnesium (1.8-2.4) mg/dL 2.1 Total Bilirubin (0.2-1.0) mg/dL 0.4 AST (15-37) U/L 17 ALT (14-59) U/L 24 Alkaline Phosphatase (46-116) U/L 50 Troponin I (<or=60) ng/L < 50 Total Protein (6.4-8.2) g/dL 7.8 Albumin (3.4-5.0) g/dL 4.1 TSH (0.36-3.74) uIU/mL Urine Color (Yellow) Urine Clarity (Clear) Urine pH (5-8) Ur Specific [place] (1.005-1.025) Urine Protein (Negative) mg/dL Urine Ketones (Negative) mg/dL Urine Blood (Negative) Urine Nitrite (Negative) Urine Bilirubin (Negative) Urine Urobilinogen (Up to 0.2) mg/dL Ur Leukocyte Esterase (Negative) Urine RBC (0-2) HPF Urine WBC (0-5) HPF Ur Epithelial Cells (Negative) HPF Urine Crystals (Negative) HPF Urine Bacteria (Negative) HPF Urine Casts (Negative) LPF Urine Mucus (Negative) Ur Culture Indicated? Urine Glucose (Negative) mg/dL Add-On Test Request DONE Range/Units 04/27/23 04/27/23 12:50 13:36 WBC (4.4-10.8) 10^3/uL RBC (3.93-5.22) 10^6/uL Hgb (11.2-15.7) g/dL Hct (36.0-46.0) % MCV (80-95) fL MCH (27.0-33.0) pg MCHC (32.0-36.0) % RDW (11.7-14.6) % Plt Count (130-400) 10^3/uL MPV (8.0-11.0) fL Immature Gran % Neutrophils % Lymphocytes % Monocytes % Eosinophils % Basophils % Nucleated RBC % (0.0-0.3) % Absolute Neutrophils (1.2-6.7) 10^3/uL Absolute Lymphocytes (1.2-3.4) 10^3/uL Absolute Monocytes (0.1-0.8) 10^3/uL Absolute Eosinophils (0.0-0.7) 10^3/uL Absolute Basophils (0.0-0.2) 10^3/uL Sodium (136-145) mmol/L Potassium (3.5-5.1) mmol/L Chloride (98-107) mmol/L Carbon Dioxide (21.0-32.0) mmol/L Anion Gap (3-11) mmol/L BUN (7-18) mg/dL Creatinine (0.55-1.02) mg/dL Est GFR (CKD-EPI 2020) (mL/min/1.73m2) Glucose (74-106) mg/dL Calcium (8.5-10.1) mg/dL Magnesium (1.8-2.4) mg/dL Total Bilirubin (0.2-1.0) mg/dL AST (15-37) U/L ALT (14-59) U/L Alkaline Phosphatase (46-116) U/L Troponin I (<or=60) ng/L Total Protein (6.4-8.2) g/dL Albumin (3.4-5.0) g/dL TSH (0.36-3.74) uIU/mL 1.57 Urine Color (Yellow) Yellow Urine Clarity (Clear) Clear Urine pH (5-8) 5.5 Ur Specific [place] (1.005-1.025) 1.010 Urine Protein (Negative) mg/dL Negative Urine Ketones (Negative) mg/dL Negative Urine Blood (Negative) Trace-intact H Urine Nitrite (Negative) Negative Urine Bilirubin (Negative) Negative Urine Urobilinogen (Up to 0.2) mg/dL 0.2 Ur Leukocyte Esterase (Negative) Negative Urine RBC (0-2) HPF 0-2 Urine WBC (0-5) HPF 0-2 Ur Epithelial Cells (Negative) HPF Rare Urine Crystals (Negative) HPF Negative Urine Bacteria (Negative) HPF Negative Urine Casts (Negative) LPF Negative Urine Mucus (Negative) Negative Ur Culture Indicated? No Urine Glucose (Negative) mg/dL Negative Add-On Test Request HPI General Mode of arrival: ambulatory. Date/Time Provider Initiated Documentation: 04/27/23 13:08. Limitations to Documentation: no limitations. Information obtained by: patient, RN notes reviewed and old records reviewed. HPI Narrative: 52-year-old female presents to the ER with chief complaint of visual disturbances, she describes it as a kaleidoscope to her right eye, headache which began around 1030 while [address]. She reports that she was able to drive home and attempted to look at her cell phone which she was unable to do. She reports increased fatigue. She has been being seen per her PCP and had a recent neurology appointment on Thursday in [place] for some what sounds like cervical radiculopathy and some right upper extremity weakness. She reports that she has been diagnosed with some osteoarthritis in her neck. She denies any recent head injuries. She is scheduled for an upcoming MRI of her neck. Upon initial presentation she is alert and oriented x4, no facial droop, slight drift to her right upper extremity, no leg drop, no nystagmus. She does have some pain with upward lateral gaze on the right side. She also describes pain to her head and the base of her skull. Related Data Home Medications Medication Instructions Recorded Confirmed multivitamin 1 ea PO DAILY 01/14/13 04/27/23 levothyroxine 75 mcg capsule 75 mcg PO DAILY 03/22/19 04/27/23 Allergies Allergy/AdvReac Type Severity Reaction Status Date / Time Penicillins Allergy Intermediate hives Unverified 04/27/23 14:17 Sulfa (Sulfonamide Allergy Intermediate Hives Unverified 04/27/23 14:17 Antibiotics) General Stated Complaint: GenMedical RONNA: 3 Review of Systems All systems reviewed & are unremarkable except as noted in HPI and below Constitutional Constitutional: Reports as per HPI, Reports fatigue, Reports headache(s) and Reports weakness (Generalized fatigue and RUE weakness) Eyes Eyes: Reports other visual disturbances, Reports seeing flashes (Describes Kaleidoscope) and Reports photophobia ENT Ears, Nose, Mouth, and Throat: Reports headache(s) Cardiovascular Cardiovascular: Denies chest pain, Denies leg edema, Reports lightheadedness and Denies dyspnea Respiratory Respiratory: Denies cough, Denies hemoptysis, Denies excessive phlegm production and Denies dyspnea Gastrointestinal Gastrointestinal: Denies abdominal pain, Denies diarrhea, Denies nausea and Denies vomiting Neurologic Neurologic: Reports as per HPI, Reports headache(s), Reports localized weakness (RUE), Denies memory loss, Reports radicular pain (RUE), Reports paresthesias and Reports weakness (Generalized fatigue and RUE weakness) Psychiatric Psychiatric: Denies memory loss Endocrine Endocrine: Reports fatigue PFSH All Active Problems (Updated 04/27/23 @ 15:45 by Tabatha Covington NP) Atypical migraine (Acute) Visual disturbance (Acute) Medical History Hypothyroid Migraine Surgical History H/O hernia repair (~12/2012) Hx of colonoscopy 05/11/19 Dr Nicolasa Banerjee, [facility], normal, repeat 10 years. Family History Mother Hypertension Rheumatoid arthritis Father Pancreatic cancer Maternal Grandmother Breast cancer Son Diabetes Social History Smoking/Tobacco Use Status: Never Smoking risk assessment performed?: Yes Alcohol Intake: current Alcohol Intake frequency: 0-2 drinks per day Alcohol type: wine Drug use: Never Substance use type: does not use Do you feel safe at home: Yes Do you feel safe in your relationship?: Yes Exam Narrative Exam Narrative: Constitutional: Alert and oriented x3. Appears stated age. Normal body habitus. Head: Normocephalic, no trauma. Eyes: Pupils PERRL, Red reflex noted, EOM's intact. Eyelids symmetrical without lesions, discharge, or swelling. ENT: Bilateral TM's WNL, External ear normal to inspection, no mastoid TTP, swelling, or erythema, Nasal turbinates WNL, no nasal discharge. Normal dentition, Posterior pharynx WNL, no exudate. Chest: RRR, Normal S1, S2, distal pulses intact. Resp: Lungs clear to auscultation bilaterally, no wheezes, rales, or rhonchi. Abdomen: Soft, non-distended, Normoactive bowel sounds all 4 quads. Musculoskeletal: Normal gait, 5/5 strength to all four extremities. Skin: No suspicious rashes or lesions. Capillary refill less than 2 sec. Neurologic: Cranial nerves II-XII intact. Alert and oriented x 3. Motor: No deficits noted. Sensory: Intact bilaterally all 4 extremities. She does have slight right upper extremity drift with pronator test, [employer] 4 out of 5 upper extremities bilaterally, intact dorsiflexion pedal flexion and extension the lower extremities bilaterally. No facial droop, EOMs intact, does have some tenderness with right lateral upward gaze. Hematologic/Lymphatic: No ecchymosis, no lymphadenopathy. Course Vital Signs Vital signs: Vital Signs Temperature 36.7 C 04/27/23 12:44 Pulse 78 04/27/23 12:44 Respiratory Rate 16 04/27/23 12:44 Blood Pressure 132/80 04/27/23 12:44 Pulse Oximetry 96 04/27/23 12:44 Temperature 36.7 C 04/27/23 12:44 Temperature Source Oral 04/27/23 12:44 Pulse 78 04/27/23 12:44 Respiratory Rate 15 04/27/23 13:02 Respiratory Effort Normal 04/27/23 13:02 Respiratory Depth Normal 04/27/23 13:02 Respiratory Pattern Normal 04/27/23 13:02 Blood Pressure 132/80 04/27/23 12:44 Blood Pressure Position Supine 04/27/23 12:44 Pulse Oximetry 96 04/27/23 12:44 Oxygen Delivery Method Room Air 04/27/23 12:44 Oxygen Flow Rate 0 04/27/23 12:44 Pain Level 2 04/27/23 12:44
[2023-04-27 13:31] LABS: Abs Immature Grans 0.06 10^3/uL (0.0-0.06); Absolute Eosinophil Count 0.04 10^3/uL (0.0-0.7); Absolute Lymphocyte Count 3.46 10^3/uL (1.2-3.4); Absolute Monocyte Count 0.82 10^3/uL (0.1-0.8); Absolute Neutrophil Count 9.92 10^3/uL (1.2-6.7); Basophils % 0.7; Eosinophils % 0.3; HCT 35.1 % (36.0-46.0); HGB 12.3 g/dL (11.2-15.7); Immature Grans % 0.4; MCH 31.9 pg (27.0-33.0); MCV 91 fL (80-95); MPV 9.2 fL (8.0-11.0); Monocytes % 5.7; Neutrophils % 68.9; Platelet Count 414 10^3/uL (130-400); RBC 3.86 10^6/uL (3.93-5.22); RDW 12.8 % (11.7-14.6); RDW-SD 42.2 fL
[2023-04-27 13:33] LABS: Lab Add On Test DONE
[2023-04-27 13:52] LABS: ALT 24 U/L (14-59); AST 17 U/L (15-37); Albumin 4.1 g/dL (3.4-5.0); Alkaline Phosphatase 50 U/L (46-116); Anion Gap 10.3 mmol/L (3-11); BUN 17 mg/dL (7-18); Bilirubin, Total 0.4 mg/dL (0.2-1.0); CO2 25.7 mmol/L (21.0-32.0); CREATININE 0.7 mg/dL (0.55-1.02); Calcium 9.4 mg/dL (8.5-10.1); Chloride 103 mmol/L (98-107); Estimated GFR 102.71 (mL/min/1.73m2); Glucose 91 mg/dL (74-106); Magnesium 2.1 mg/dL (1.8-2.4); Potassium 3.8 mmol/L (3.5-5.1); Sodium 139 mmol/L (136-145); Total Protein 7.8 g/dL (6.4-8.2); Troponin I < 50 ng/L (<or=60)
[2023-04-27 14:00] LABS: TSH (W/Ref FT4) 1.57 uIU/mL (0.36-3.74)
[2023-04-27 14:10] LABS: Bilirubin Negative (Negative); Blood Trace-intact (Negative); Clarity Clear (Clear); Glucose Negative (Negative); Ketones Negative (Negative); Leukocyte Esterase Negative (Negative); Nitrite Negative (Negative); Urobilinogen 0.2 mg/dL (Up to 0.2); pH 5.5 (5-8)
[2023-04-27 14:17] LABS: Bacteria Negative HPF (Negative); Crystals Negative HPF (Negative); Epithelial Cells Rare HPF (Negative); RBC 0-2 HPF (0-2); WBC 0-2 HPF (0-5)
[2023-04-27 14:18] LABS: C & S Indicated? No; Casts Negative LPF (Negative); Mucus Negative (Negative)
[2023-04-27] MEDS: Normal Saline - Diluent 50 ML VIAL IJ (14:22)
[2023-04-27] MEDS: Normal Saline Flush 10 ML SYR IVP (14:22)
[2023-04-27] MEDS: Omnipaque 350 MG/ML 100 ML BTL IJ (14:23)
--- NOTE | 2023-04-27 14:39 | DI.CT_ITS ---
Exam(s) CT BRAIN NECK CTA EXAM: CT BRAIN NECK CTA CLINICAL HISTORY: Headache, Visual disturbance, Right side weakness. TECHNIQUE: Imaging Protocol: Axial CT angiography was performed with multi-slice acquisition and mu lti-planar and/or 3D reconstructions. CONTRAST MATERIAL: Intravenous: Omnipaque 350 contrast volume:85 mL COMPARISON: No exams were available for comparison FINDINGS: The examination is limited due to patient motion artifact. CT Head W/O and W: Ventricles and Extra axial spaces: Normal in size and morphology for the patient's age. Hemorrhage: None. Cerebral parenchyma: No evidence of an acute territorial infarct. Midline shift: None. Brainstem/Cerebellum: Normal. Calvarium: Normal. Visualized Paranasal sinuses/Mastoids: Clear. Soft Tissues: Unremarkable. Enhancement: Unremarkable. CTA Neck W: Common Carotid: Right: No dissection, occlusion or significant stenosis. Left: No dissection, occlusion or significant stenosis. External Carotid: Right: No occlusion or significant stenosis. Left: No occlusion or significant stenosis. Internal Carotid: Right: No dissection, occlusion or significant stenosis. Left: No dissection, occlusion or significant stenosis. Vertebral Artery: Right: No dissection, occlusion or significant stenosis. Left: No dissection, occlusion or significant stenosis. Lung Apices: Normal. Bones: Within normal limits for the patient's age. There is reversal of the normal cervical lordosis which is likely degenerative in nature. Moderate degenerative changes are seen throughout the cervic al spine. Soft Tissues: Normal. Thyroid gland: Unremarkable. CTA Brain W: Internal Carotid Arteries: Normal. Anterior Cerebral Arteries: Right: No aneurysm, occlusion or significant stenosis. Left: No aneurysm, occlusion or significant stenosis. Middle Cerebral Arteries: Right: No aneurysm, occlusion or significant stenosis. Left: No aneurysm, occlusion or significant stenosis. Posterior Cerebral Arteries: Right: No aneurysm, occlusion or significant stenosis. Left: No aneurysm, occlusion or significant stenosis. Vertebral Arteries: Right: No aneurysm, occlusion or significant stenosis. Left: No aneurysm, occlusion or significant stenosis. Basilar Artery: No aneurysm, occlusion or significant stenosis. IMPRESSION: 1. No large vessel occlusion or significant stenosis on the CT angiography of the head. 2. No acute intracranial process. 3. No occlusion or significant stenosis on the CT angiography of the neck. RADIATION DOSE DELIVERED: 1,872.19mGy.cm Total DLP DATA REPOSITORY: All CT scans at this facility are submitted to the National Radiology Data Registry (NRDR) Dose Index Registry (DIR) with the [employer] (ACR). RADIATION OPTIMIZATION: All CT scans at this facility use at least one of these dose optimization te chniques: automated exposure control; mA and/or kV adjustment per patient size (includes targeted exa ms where dose is matched to clinical indication); or iterative reconstruction.
--- NOTE | 2023-04-27 15:18 | DI.VRAD_ITS ---
PROCEDURE INFORMATION: Exam: CTA Head Without And With Contrast, Arteriography Exam date and time: 04/27/2023 2:24 PM Age: 52 years old Clinical indication: Pain; Headache and visual disturbance; Type not specified TECHNIQUE: Imaging protocol: Computed tomographic angiography of the head without and with contrast. Exam focused on the arteries. 3D rendering (Not supervised by radiologist): MIP and/or 3D reconstructed images were created by the technologist. Radiation optimization: All CT scans at this facility use at least one of these dose optimization techniques: automated exposure control; mA and/or kV adjustment per patient size (includes targeted exams where dose is matched to clinical indication); or iterative reconstruction. Contrast material: OMNI 350; Contrast volume: 85 ml; Contrast route: INTRAVENOUS (IV); COMPARISON: No relevant prior studies available. FINDINGS: Limitations: The examination is mildly degraded by patient motion artifact. Diagnostic information is still obtained. ANTERIOR CIRCULATION: Right internal carotid artery: Intracranial segment is patent with no significant stenosis or occlusion. No aneurysm. Right middle cerebral artery: No occlusion or significant stenosis. No aneurysm. Right anterior cerebral artery: No occlusion or significant stenosis. No aneurysm. Left internal carotid artery: Intracranial segment is patent with no significant stenosis. No aneurysm. Left middle cerebral artery: No occlusion or significant stenosis. No aneurysm. Left anterior cerebral artery: No occlusion or significant stenosis. No aneurysm. POSTERIOR CIRCULATION: Right vertebral artery: No occlusion or significant stenosis. No aneurysm. Left vertebral artery: No occlusion or significant stenosis. No aneurysm. Basilar artery: No occlusion or significant stenosis. No aneurysm. Fenestration of the basilar artery. Right posterior cerebral artery: No occlusion or significant stenosis. No aneurysm. Left posterior cerebral artery: No occlusion or significant stenosis. No aneurysm. HEAD: Brain: Normal. No hemorrhage. Unremarkable white matter. No mass effect. Cerebral ventricles: Normal. No ventriculomegaly. Bones/joints: Unremarkable. No acute fracture. Paranasal sinuses: Visualized sinuses are normal. No fluid levels. Mastoid air cells: Visualized mastoids are normal. No mastoid effusion. Soft tissues: Unremarkable. IMPRESSION: No large vessel occlusion. Unremarkable CT head. PROCEDURE INFORMATION: Exam: CTA Neck Without And With Contrast Exam date and time: 04/27/2023 2:24 PM Age: 52 years old Clinical indication: Pain; Headache and visual disturbance; Type not specified TECHNIQUE: Imaging protocol: Computed tomographic angiography of the neck without and with contrast. 3D rendering (Not supervised by radiologist): MIP and/or 3D reconstructed images were created by the technologist. Radiation optimization: All CT scans at this facility use at least one of these dose optimization techniques: automated exposure control; mA and/or kV adjustment per patient size (includes targeted exams where dose is matched to clinical indication); or iterative reconstruction. Contrast material: OMNI 350; Contrast volume: 85 ml; Contrast route: INTRAVENOUS (IV); COMPARISON: No relevant prior studies available. FINDINGS: Right common carotid artery: No stenosis. No dissection or occlusion. Right internal carotid artery: No stenosis of the extracranial segment (0% by NASCET criteria). No dissection or occlusion. Right external carotid artery: No occlusion or stenosis of the origin. Left common carotid artery: No stenosis. No dissection or occlusion. Left internal carotid artery: No stenosis of the extracranial segment (0% by NASCET criteria). No dissection or occlusion. Left external carotid artery: No occlusion or stenosis of the origin. Right vertebral artery: No stenosis. No dissection or occlusion. Left vertebral artery: No stenosis. No dissection or occlusion. Soft tissues: Normal. No significant soft tissue swelling. Bones/joints: Diffuse degenerative changes of the cervical spine with reversal of the normal cervical lordosis. Likely moderate spinal canal stenosis at C4-C5 through C6-C7 as well as high-grade bony neural foraminal narrowing at C5-C6 on the left and C6-C7 bilaterally. IMPRESSION: 1. No arterial stenosis of the neck. 2. Degenerative changes of the cervical spine with reversal of the normal cervical lordosis and likely multilevel spinal canal stenosis and neural foraminal narrowing. This is incompletely evaluated. If symptomatic, MRI could be performed for further characterization. REFERENCES: NASCET CRITERIA. The degree of stenosis in the cervical segment of the internal carotid artery is based on NASCET criteria. Normal is no stenosis. Mild is less than 50% stenosis. Moderate is 50-69% stenosis. Severe is 70% to 99% stenosis. Total occlusion is no detectable patent lumen. Dictated and Authenticated by: Teo Mcneal MD. Ordering:GLEN Mays MD
== END 2023-04-27 15:53 | disposition home or self-care (01) ==
PROVIDERS: Emergency Provider Registered Nurse Emergency; PCP Nurse Practitioner
DX: G43.109 Migraine with aura, not intractable, without status migrainosus (principal); H53.9 Unspecified visual disturbance
CPT/HCPCS: 36415; 70496; 70498; 80053; 93005; 99285; 81003; 81015; 83735; 84443; 84484; 85025; 93010; 99283; J3490

== ENCOUNTER → 2023-05-27 02:58 | Outpatient (CLI) | payer OTHER, SELFPAY ==
--- NOTE | 2023-05-27 | DI.MRI_ITS ---
Exam(s) MR CERVICAL SPINE WO EXAM: MR CERVICAL SPINE WO CLINICAL HISTORY: RADICULAR PAIN RT ARM M79.2NUMBNESS PT INEFFECTIVE TECHNIQUE: Multiplanar multisequence MRI of the cervical spine was performed without intravenous con trast. COMPARISON: No exams were available for comparison FINDINGS: CERVICOMEDULLARY JUNCTION: Intact with no evidence of cerebellar tonsillar ectopia. No obvious abnor mality of the odontoid process. No evidence of Chiari 1 malformation. CERVICAL SPINAL CORD: There is no abnormal signal in the cervical spinal cord and no evidence of foca l cord atrophy nor focal cord swelling. OSSEOUS: There is reversal of the normal curvature of the cervical spine. There are no cervical frac tures evident. No significant osseous lesions in the cervical vertebrae. INDIVIDUAL LEVELS: C2-3: No disc herniation nor central canal stenosis. No foraminal stenosis. Left facet joint appears unremarkable. There is no foraminal stenosis on the left side. There are moderate degenerative chana nges in the right facet joint. However, there is no significant foraminal stenosis on the right side . C3-4: There is moderate disc space narrowing at this level and mild anterolisthesis of C3 upon C4 rel ated to facet arthropathy. There is no disc herniation at this level and no central spinal canal romero nosis. There is significant facet arthropathy on both sides at this level. However, there is no sig nificant foraminal stenosis on either side. C4-5: This level exhibits chronic advanced disc space narrowing. Posterior bulging but no true disc herniation evident. On the right side there is a prominent Luschka joint osteophyte complex. This i mpresses the thecal sac. There is moderate degenerative change in the right facet joint at this leve l. Results in asymmetric moderate right-sided foraminal stenosis. On the opposite-left side at this level there is no significant foraminal stenosis. No facet arthropathy on the left side. C5-6: This level also exhibits advanced uniform disc space narrowing and anterior osteophytes. There is broad posterior annular bulging and osteophytic ridging which compresses the thecal sac and conta cts the spinal cord. There is an element of central spinal canal stenosis at this level. The AP nola surement of the canal is 8.5 mm at this level. There is moderate degenerative change in the right fa cet joint at this level and no obvious degenerative change in the left facet joint. Luschka joint os teophytes noted bilaterally. Mild foraminal stenosis on the left side. Mild foraminal stenosis on t he right side. C6-7: This level also exhibits advanced chronic disc space narrowing and broad posterior annular bulg ing and osteophytic ridging which flattens the thecal sac and results in mild-moderate canal stenosis . AP measurement of the spinal canal is 8 mm at this level. There may minimal degenerative changes in the facet joints on both sides at this level. There are bilateral Luschka joint-osteophyte comple xes, slightly larger on the left side. There is significant right-sided foraminal stenosis at this l evel.. Also significant right-sided foraminal stenosis at this level. C7-T1: No disc herniation nor central canal stenosis. There is some facet arthropathy on the right si de at this level. There is no foraminal stenosis on the right side. Mild foraminal stenosis on the left side. IMPRESSION: 1. Multilevel chronic degenerative disc disease as described per individual level above. There is ch ronic disc space narrowing at C4-5, C5-6, and C6-7 levels and with Luschka joint osteophytes at these levels. Also an element of spinal canal stenosis at C5-6 and C6-7 levels. 2. There is asymmetric foraminal stenosis as described above this related to asymmetric degenerative changes in the facet joints and Luschka joint osteophytes and annular bulging. 3. There is reversal of the normal curvature of the cervical spine 4. No abnormal signal evident in the cervical spinal cord. DATA REPOSITORY:
== END ==
PROVIDERS: PCP Nurse Practitioner; Visit Provider Physician Assistant Medical
DX: M50.021 Cervical disc disorder at C4-C5 level with myelopathy (principal); M50.022 Cervical disc disorder at C5-C6 level with myelopathy
CPT/HCPCS: 72141

== ENCOUNTER → 2023-07-03 03:03 | Outpatient (CLI) | payer OTHER, SELFPAY ==
--- NOTE | 2023-07-03 | DI.RAD_ITS ---
Exam(s) XR RIBS BI INCLUDE CHEST EXAM: XR RIBS BI INCLUDE CHEST CLINICAL HISTORY: BRACHIAL NEURITIS,M54.12,NECK PAIN,M54.2 TECHNIQUE: 2D digital imaging was performed. COMPARISON: CR ABD FLAT UPRIGHT PA CHEST from 06/17/2010 FINDINGS: MEDIASTINUM: Normal. HEART: Normal. PULMONARY VASCULATURE: Normal. LUNGS: Clear. PLEURAL SPACE: No pleural effusion or pneumothorax. BONE:Normal. BILATERAL RIBS: Normal. OTHER FINDINGS:Normal. IMPRESSION: 1. No acute pulmonary findings. 2. Unremarkable ribs. DATA REPOSITORY: RADIATION DOSE DELIVERED:
== END ==
PROVIDERS: PCP Nurse Practitioner; Visit Provider Nurse Practitioner
DX: M54.2 Cervicalgia (principal); M54.12 Radiculopathy, cervical region
CPT/HCPCS: 71046; 71110

== ENCOUNTER → 2023-09-16 01:52 | Outpatient (CLI) | payer OTHER, SELFPAY ==
--- NOTE | 2023-09-16 | DI.MAMMO_ITS ---
Exam(s) MAMMO DIAGNOSTIC UNI EXAM: MAMMO DIAGNOSTIC UNI CLINICAL HISTORY: MICROCALCIFICATIONS LEFT BREAST R92.0 6 MO FU R92.8 ABNL MAMMO TECHNIQUE: Left cc and MLO mammogram images were performed according to the usual protocol [facility] computer analysis with CAD system, tomosynthesis and C-view imaging. Spot magnification CC view o f the medial breast. COMPARISON: 2017 through March 15 FINDINGS: The left breast is composed of heterogeneously dense fibroglandular tissue, breast density category C. No suspicious masses or suspicious microcalcifications are seen. There has been no change in the miranda uping calcifications in medial left breast over time. No skin thickening or abnormal axillary lymph nodes are seen. IMPRESSION: BI-RADS Category 2 - Benign Findings Bilateral green mammography is recommended, due in February 2024.. Breast Density - Category C - Heterogeneously dense Fibroglandular tissue which may decrease the sens itivity of the mammogram. A negative radiographic report should not delay biopsy if a dominant or clinically suspicious mass is present. Up to ten percent of cancers are not identified on mammography. A negative report may reinforce clinical impression. Adenosis and dense breasts may obscure an underlying neoplasm. False positive reports average 6 to 10%. Patient will receive a letter notifying them of these results.
== END ==
PROVIDERS: PCP Nurse Practitioner; Visit Provider Nurse Practitioner
DX: Z12.31 Encounter for screening mammogram for malignant neoplasm of breast (principal); R92.8 Other abnormal and inconclusive findings on diagnostic imaging of breast
CPT/HCPCS: 77061; 77065; G0279

== ENCOUNTER → 2024-03-18 00:05 | Outpatient (CLI) | payer OTHER, SELFPAY ==
--- NOTE | 2024-03-18 | DI.MAMMO_ITS ---
Exam(s) MAMMO SCREENING EXAM: MAMMO SCREENING CLINICAL HISTORY: SCREENING, Z12.31 TECHNIQUE: Bilateral full field digital CC and MLO mammographic images were obtained with 3D tomosyn thesis and utilizing computer aided detection (CAD). COMPARISON: Available for comparison. FINDINGS: Masses/Architectural Distortion: None seen. There is a biopsy clip again seen in the left breast. Microcalcifications: No suspicious pleomorphic-type are seen. Skin Thickening/Nipple Retraction: None. IMPRESSION: 1. No significant interval change with no specific features of malignancy noted. 2. Unless there is more urgent need, screening mammography is recommended, as per [place] [employer] guidelines. BI-RADS Category 1 - Negative Breast Density - Category C - Heterogeneously dense Breast density category C or D implies that the patient has dense breast tissue. Dense breast tissue is very common and is not abnormal but dense breast tissue can make it harder to find cancer on a ma mmogram. Also, dense breast tissue may increase their breast cancer risk. This information about the result of the mammogram report was provided to the patient to raise their awareness. Use this report when you speak with the patient about their risks for breast cancer, which includes their family hist ory. At that time, you may recommend for more screening tests (Ultrasound or MRI) as they might be us eful based on their risk. A negative radiographic report should not delay biopsy if a dominant or clinically suspicious mass is present. Up to ten percent of cancers are not identified on mammography. A negative report may reinforce clinical impression. Adenosis and dense breasts may obscure an underlying neoplasm. False positive reports average 6 to 10%. Patient will receive a letter notifying them of these results.
== END ==
PROVIDERS: PCP Nurse Practitioner; Visit Provider Nurse Practitioner
DX: R92.0 Mammographic microcalcification found on diagnostic imaging of breast (principal); R92.8 Other abnormal and inconclusive findings on diagnostic imaging of breast; Z12.31 Encounter for screening mammogram for malignant neoplasm of breast; R92.333 Mammographic heterogeneous density, bilateral breasts
CPT/HCPCS: 77063; 77067

== ENCOUNTER 2024-10-24 01:28 | Outpatient (CLI) | payer BC, SELFPAY ==
--- NOTE | 2024-10-24 | DI.RAD_ITS ---
Exam(s) XR KNEE RT 4V AP,LAT,JAC,PAT EXAM: XR KNEE RT 4V AP,LAT,JAC,PAT CLINICAL HISTORY: Rt knee pain, M25.561. TECHNIQUE: 2D digital imaging was performed. COMPARISON: No exams were available for comparison FINDINGS: Four views There is some soft tissue swelling off the antro medial aspect of the knee. There is no patellar fra cture nor narrowing of the patellofemoral compartment. There does appear to be mild narrowing of the lateral compartment of the knee and marginal osteophytes off the outer aspect of the lateral compart ment. Medial compartment appears unremarkable. There is a small joint effusion. Bone density is no rmal. No osseous lesions. No osteochondral defects. IMPRESSION: There is some degenerative narrowing of the lateral compartment. Medial patellofemoral compartments appear unremarkable. There is a small joint effusion. There is anterior soft tissue swelling over the anterior and medial aspect of knee. Patella appears unremarkable. DATA REPOSITORY: RADIATION DOSE DELIVERED:
== END 2024-10-24 01:48 ==
LOC: DI 01:28
PROVIDERS: PCP Nurse Practitioner; Visit Provider Nurse Practitioner
DX: M17.11 Unilateral primary osteoarthritis, right knee (principal)
CPT/HCPCS: 73564

== ENCOUNTER 2025-03-20 02:36 | Outpatient (CLI) | payer BC, SELFPAY ==
--- NOTE | 2025-03-20 | DI.MAMMO_ITS ---
Exam(s) MAMMO SCREENING EXAM: MAMMO SCREENING CLINICAL HISTORY: Screening, Z12.31. TECHNIQUE: Bilateral full field digital CC and MLO mammographic images were obtained with 3D tomosynthesis and utilizing computer aided detection (CAD). COMPARISON: Prior mammograms were reviewed. FINDINGS: There has been no significant change in the appearance and distribution of the fibroglandular tissue. No new right breast findings. No new findings in the immediate vicinity of a biopsy marker device anteriorly in the left breast. Medially in the left breast there is a well-defined noncalcified 8 by 7 mm nodule located 6 cm in from the nipple medial of center on the CC view. It is more evident than on prior mammograms. Spot compression view and ultrasound recommended. There is no significant architectural distortion nor skin thickening-retraction. IMPRESSION: 1. No radiographic evidence of malignancy in right breast. 2. Asymmetric density-possible nodule measuring 8 x 7 mm in the left breast as described above. Spot compression CC views complete breast ultrasound recommended. BI-RADS Category 0 - Incomplete: Need additional imaging evaluation Breast Density - Category C - The breast are heterogeneously dense, which may obscure small masses. Breast density Category C or D implies that the patient has dense breast tissue. Dense breast tissue can make it harder to find cancer on a mammogram. Dense breast tissue is also associated with an increased risk of breast cancer. This information about the result of the mammogram report was provided to the patient to raise their awareness. Use this report when you speak with the patient about their risks for breast cancer, which includes their family history. At that time, you may recommend additional screening tests (Ultrasound or MRI) as these tests may add significant information. A negative radiographic report should not delay biopsy if a dominant or clinically suspicious mass is present. Up to ten percent of cancers are not identified on mammography. A negative report may reinforce clinical impression. Adenosis and dense breasts may obscure an underlying neoplasm. False positive reports average 6 to 10%. Patient will receive a letter notifying them of these results.
== END 2025-03-20 02:56 ==
LOC: DI 02:37
PROVIDERS: PCP Nurse Practitioner; Visit Provider Nurse Practitioner
DX: Z12.31 Encounter for screening mammogram for malignant neoplasm of breast (principal); R92.333 Mammographic heterogeneous density, bilateral breasts
CPT/HCPCS: 77063; 77067

== ENCOUNTER 2025-03-22 03:10 | Outpatient (CLI) | payer BC, SELFPAY ==
--- NOTE | 2025-03-22 | DI.MAMMO_ITS ---
Exam(s) MG MAMMO SCREEN CALL BACK UNI US BREAST LT COMPLETE EXAM: MG MAMMO SCREEN CALL BACK UNI CLINICAL HISTORY: ASYMMETRIC DENSITY POSSIBLE NODULE LEFT BREAST R92.8 ABNL MAMMO. TECHNIQUE: Craniocaudal and mediolateral oblique spot compression digital Mammography views of the the leftbreast with Tomosynthesis and left breast ultrasound. COMPARISON: MG MG MAMMO SCREENING from 03/20/2025 US US BREAST LT COMPLETE from 03/22/2025 FINDINGS: Mammography/Tomosynthesis: Masses: Persistent circumscribed nodule in the lower inner quadrant of the left breast. Architectural Distortion: None seen. Microcalcifictions: No suspicious pleomorphic-type are seen. Skin Thickening/Nipple Retraction: None. Left breast US: Echotexture: Normal appearance of the glandular tissue. Shadowing: No suspicious foci. Cyst: 8 x 4 x 6 millimeter simple cyst at the 7 o'clock position 4 cm from the nipple. This corresponds to the mammographic abnormality. Solid lesions: None seen. Ductal dilation: None. IMPRESSION: 1. No evidence of malignancy is noted. 2. Unless there is more urgent need, follow-up screening mammography is recommended, as per [place] [employer] guidelines. 3. The findings were discussed with the patient on the date of the examination. BI-RADS Category 2 - Benign Findings Breast Density - Category C - The breast are heterogeneously dense, which may obscure small masses. Breast density Category C or D implies that the patient has dense breast tissue. Dense breast tissue can make it harder to find cancer on a mammogram. Dense breast tissue is also associated with an increased risk of breast cancer. This information about the result of the mammogram report was provided to the patient to raise their awareness. Use this report when you speak with the patient about their risks for breast cancer, which includes their family history. At that time, you may recommend additional screening tests (Ultrasound or MRI) as these tests may add significant information. A negative radiographic report should not delay biopsy if a dominant or clinically suspicious mass is present. Up to ten percent of cancers are not identified on mammography. A negative report may reinforce clinical impression. Adenosis and dense breasts may obscure an underlying neoplasm. False positive reports average 6 to 10%. Patient will receive a letter notifying them of these results.
== END 2025-03-22 03:30 ==
LOC: DI 03:10
PROVIDERS: PCP Nurse Practitioner; Visit Provider Nurse Practitioner
DX: Z12.31 Encounter for screening mammogram for malignant neoplasm of breast (principal); R92.8 Other abnormal and inconclusive findings on diagnostic imaging of breast; R92.333 Mammographic heterogeneous density, bilateral breasts
CPT/HCPCS: 76642; 77063; 77067